=== PATIENT | female | born 1995 | race Caucasian/White ===

== ENCOUNTER 2018-01-06 09:50 | Inpatient (IN) | payer OTHER ==
[2018-01-06] MEDS ORDERED: ELECTROLYTE-148 SOLN 1,000 ML IV SCH ×2 (10:45→11:45)
[2018-01-06 11:33] VITALS: BMI 28.3
[2018-01-06] MEDS ORDERED: CITRIC ACID/SODIUM CITRATE 30 ML UNIT-DOSE CUP PO ONE (11:45)
--- NOTE | 2018-01-06 11:54 | HP ---
Past Medical History - Primary Care Physician PCP:: Eda Alex - Admission Chief Complaint: 22 yrs , previous c/section x2,39.2 weeks onset LP since 5..00 am . no leaking & bleeding. tachycrdia 180 bpm was noted at 10.00AM when arrived , after iv hydration fhr 160 bpm . uc are irregular History of Present Illness: pnc at [address] [place] [address] . wt gain 12 lb wt gain work Up : A Pos, Rpr nr, Hbsag neg, Rubella pos, Hiv neg, Sickle neg , Quantiferon neg, ,GBS pos, gc/ct neg .pngt not done, HB1a1c 4.7 last sono on 12/17/17 , modified, sequential , NT screen neg, , Vale 12.0, efw 5' 3", , bpp8/8,, ant placenta History Source: Patient, Medical Record Limitations to Obtaining History: Other (using interpretation services for deaf & Dumb, sign language through [email or web address] .) - Past Medical History FLOUR INSPECTOR: No: Migraine, Seizure Cardiovascular: No: HTN, Murmur Pulmonary: No: Asthma Gastrointestinal: Yes: Constipation Hepatobiliary: Yes: Cholelithiasis (surgery done) ...: 5 ...Para: 3 ...Term: 3 ...: 0 ...Spon : 0 ...Induced : 1 ...Multiple Gestation: 0 ...LMP: 04/06/17 ... Weeks Gestation by Dates: 39.2 ...EDC by Dates: 01/11/18 Additional OB History: G1 09/11/2010 6'10". G2 10/12/2011 primary c/s breech. G3 02/21/15 repeat c/s 6'3' , failed GUERO. G4 03/2016 Ind ab Heme/Onc: Yes: Anemia Infectious Disease: No: HIV, STD's, Tuberculosis - Past Surgical History Past Surgical History: Yes: (10/2011, 02/2015) Hx Myomectomy: No Hx Transabdominal Cerclage: No - Smoking History Smoking history: Never smoked Have you smoked in the past 12 months: No - Alcohol/Substance Use Hx Alcohol Use: No History of Substance Use: reports: None - Social History History of Recent Travel: No Home Medications - Allergies Allergies/Adverse Reactions: Allergies Allergy/AdvReac Type Severity Reaction Status Date / Time tree nut Allergy Verified 02/22/15 23:49 - Home Medications Home Medications: Ambulatory Orders Ferrous Gluconate 324 mg PO DAILY 02/22/15 Vit No.130/Iron/Folic [ Tablet] 1 each PO DAILY 02/22/15 Ibuprofen [Motrin -] 200 mg PO Q4H PRN #2 tablet 02/25/15 Physical Exam - Maternity Vital Signs: Vital Signs Temperature 98.2 F 01/06/18 11:10 Pulse Rate 61 01/06/18 11:10 Respiratory Rate 18 01/06/18 11:10 Blood Pressure 108/69 01/06/18 11:10 O2 Sat by Pulse Oximetry (%) Constitutional: Yes: Well Nourished, Mild Distress Eyes: Yes: WNL HENT: Yes: WNL, Normocephalic Neck: Yes: WNL Cardiovascular: Yes: WNL, Regular Rate and Rhythm Lungs: Clear to auscultation Breast(s): Yes: WNL. No: Mass - Abdominal Exam/OB Fundal Height: 38 Number of Fetuses: Single Presentation: Vertex Contractions: Yes Regularity: Irregular (2-4 min) Intensity: Mild/Mod Monitor Mode: External Heart Rate (range): 160 Heart Rate Location: [facility] Category: II Accelerations: Non-Uniform Decelerations: None - Vaginal Exam/OB Vaginal Bleediing: No Speculum Exam: No Dilatation (cm): 2 Effacement (%): 80 Amniotic Membrane Status: Intact Presentation: Vertex/Position Station: -3 - Physical Exam Musculoskeletal: Yes: WNL Extremities: Yes: WNL. No: Calf Tenderness Edema: Yes Edema: LLE: 1+, RLE: 1+ Integumentary: Yes: WNL Deep Tendon Reflex Grade: Normal +2 ...Motor Strength: WNL Psychiatric: Yes: WNL, Alert, Oriented - Labs Lab Results: Laboratory Tests 01/06/18 11:40 WBC 6.9 RBC 3.49 L Hgb 10.8 Hct 31.5 L MCV 90.3 MCH 30.8 MCHC 34.1 Plt Count 205 Neutrophils % 77.5 Lymphocytes % 16.7 D Monocytes % 5.0 Laboratory Tests 01/06/18 01/06/18 01/06/18 11:40 11:40 11:40 PT with INR 10.10 INR 0.89 PTT (Actin FS) 26.5 L D Sodium 139 Potassium 4.1 Chloride 108 H Carbon Dioxide 24 BUN 11 Creatinine 0.5 L Random Glucose 63 L Calcium 8.0 L RPR Titer Nonreactive Blood Type Antibody Screen 01/06/18 11:40 PT with INR INR PTT (Actin FS) Sodium Potassium Chloride Carbon Dioxide BUN Creatinine Random Glucose Calcium RPR Titer Blood Type A POSITIVE Antibody Screen Negative Hemorrhage Risk Assessment - Risk Factors Medium Risk Factors: Yes: Prior , uterine surgery,or multiple laparotomies Risk Score: 1 Risk Level: Medium Risk Problem List - Problems (1) with 39 completed weeks gestation Code(s): Z3A.39 - 39 WEEKS GESTATION OF (2) Previous section Code(s): Z98.891 - HISTORY OF UTERINE SCAR FROM PREVIOUS SURGERY (3) Labor established Code(s): GIZ2846 - (4) tachycardia during labor Code(s): BOO6805 - (5) tachycardia affecting management of mother, delivered Code(s): O76 - ABNLT IN HEART RATE AND RHYTHM COMP LABOR AND DELIVERY Assessment/Plan 22 yrs , 39.2 weeks, previous c/sectrion x2 , in labor, tachycardia Plan repeat c/setion
[2018-01-06] MEDS ORDERED: morphine SULFATE/Preservative Free 0.5 MG/ML (1cc Syringe) ONE (11:55)
[2018-01-06] MEDS ORDERED: ceFAZolin SODIUM 1 GM VIAL ONE ×2 (11:57→17:18)
[2018-01-06 12:09] LABS: BASO % 0.4 % (0-2.0); EOS % 0.4 % (0-4.5); HEMATOCRIT 31.5 % (32.4-45.2); HEMOGLOBIN 10.8 GM/dL (10.7-15.3); LYMPH % 16.7 % (8-40); MCH 30.8 pg (25.7-33.7); MCHC 34.1 g/dl (32.0-36.0); MEAN CELL VOLUME 90.3 fl (80-96); MEAN PLT VOLUME 9.1 fl (7.5-11.1); NEUT % 77.5 % (42.8-82.8); PLATELET COUNT 205 K/MM3 (134-434); RBC 3.49 M/mm3 (3.60-5.2); RDW 13.5 % (11.6-15.6); WHITE BLOOD COUNT 6.9 K/mm3 (4.0-10.0)
[2018-01-06 12:31] LABS: INR 0.89 (0.82-1.09); PROTHROMBIN TIME (PATIENT) 10.1 SEC (9.7-13.0)
[2018-01-06] MEDS ORDERED: OXYTOCIN 10 UNITS/ML VIAL ONE (12:33)
[2018-01-06 12:34] LABS: ACTIVATED PTT 26.5 SECONDS (26.9-34.4)
[2018-01-06] MEDS ORDERED: BUPIVACAINE 0.75% IN DEXTROSE/PF 2ML AMPULE NR ONE (12:38)
[2018-01-06 12:40] LABS: ANION GAP 7 (8-16); BLOOD UREA NITROGEN 11 mg/dL (7-18); CHLORIDE 108 mmol/L (98-107); CO2 24 mmol/L (21-32); CREATININE 0.5 mg/dL (0.55-1.02); GLUCOSE,RANDOM 63 mg/dL (74-106); POTASSIUM 4.1 mmol/L (3.5-5.1); SODIUM 139 mmol/L (136-145)
[2018-01-06] MEDS ORDERED: MIDAZOLAM HCL 2 MG/2 ML SINGLE DOSE VIAL ONE ×2 (13:05→13:12)
[2018-01-06 13:44] LABS: ARTERIAL BLD GAS O2 SATURATION 23.3 % (90-98.9); ARTERIAL BLOOD GAS BASE EXCESS -2.2 meq/l (-2-2); ARTERIAL BLOOD GAS PCO2 48.8 mmHg (35-45); ARTERIAL BLOOD GAS PO2 16.4 mmHg (80-100); ARTERIAL BLOOD GAS pH 7.31 (7.35-7.45)
[2018-01-06 13:49] LABS: VENOUS PC02 48.8 mmHg (38-52); VENOUS PH 7.31 (7.32-7.42); VENOUS PO2 16.4 mmHg (28-48)
[2018-01-06] MEDS ORDERED: IBUPROFEN 800 MG/8 ML IJ IVPB PRN ×2 (13:54→14:21)
[2018-01-06] MEDS ORDERED: ACETAMINOPHEN 325 MG TABLET (FP) PO PRN (13:54)
[2018-01-06] MEDS ORDERED: SIMETHICONE 80 MG TAB.CHEW (FP) PO PRN (13:54)
[2018-01-06] MEDS ORDERED: IBUPROFEN 600 MG TABLET (FP) PO PRN (13:54)
[2018-01-06] MEDS ORDERED: METHYLERGONOVINE MALEATE 0.2 MG/1 ML AMP IM PRN (13:54)
[2018-01-06] MEDS ORDERED: OXYTOCIN 20 UNITS in 0.9% NS 20 UNIT/1,000 ML INFUS.BAG IV SCH (14:00)
--- NOTE | 2018-01-06 14:11 | OP ---
Operative Note - Note: Operative Date: 01/06/18 Pre-Operative Diagnosis: 39.4 weeks, previous c/section x2, in labor Operation: repeat lftc/section Findings: 12.54 PM ,baby Girl, 9/9, ROT position , Wt 6'4". Ht 18.5" both tubes & ovaries normal.. Dr Pride Auto Air Conditioning Mechanic present in the room Surgeon: Eda Alex Network Design Architect: Eliseo Justin Anesthesiologist/DIGITAL PHOTOGRAPHER: Mik Fallon Anesthesia: Spinal Specimens Removed: cord blood segment for gas. cord blood. placenta Estimated Blood Loss (mls): 600 Drains, Volume Out (mls): 50 (duggan output, nat color ) Fluid Volume Replaced (mls): 1,500 (ancef 1 gmmprior to incision ) Operative Report Dictated: Yes
[2018-01-06] MEDS ORDERED: ONDANSETRON 4 MG/2 ML VIAL IVPUSH PRN (14:21)
--- NOTE | 2018-01-06 14:23 | PN ---
Delivery - Delivery Section: Repeat, Low Flap Transverse (39.4 weeks, previous c/s x2, n labor, tachycardia) Type of Anesthesia: Spinal EBL (cc): 600 (50 ml nat color urine ) Delivery, Single - Stages of Labor Date 1st Stage Initiatied: 01/06/18 Time 1st Stage Initiated: 05:00 Date of Delivery: 01/06/18 Time of Delivery: 12:54 Date Placenta Delivered: 01/06/18 Time Placenta Delivered: 12:56 Placenta: Yes: Manual Removal, Uterine Exploration - Condition of Infant Pharmacy Ancillary/Train Control Electronic Technician Present: Yes Name: Siam Pride Gender: Female Position: Right, OT Total Hours ROM (Hrs/Mins): 2 min - 1 Minute Total Score: 9 5 Minutes Total Score: 9 - Feeding Plan Initial Plan: Elected not to breastfeed exclusively throughout hospitalization Remarks - Remarks Remarks: 22 yrs , 39 .2 weeks , previous c/section x2 , in labor, tachycardia was noted gbs pos [facility] 2[facility] interpretor services used in OR Iv ancef 1 gm ivpb prior to incision was given intraop course uneventful
[2018-01-06] MEDS ORDERED: LACTATED RINGERS SOLUTION 1,000 ML IV SCH (14:30)
[2018-01-06] MEDS ORDERED: IBUPROFEN 800 MG/8 ML IJ IVPB ONE (14:43)
--- NOTE | 2018-01-06 14:59 | OP ---
DATE OF OPERATION: 01/06/2018 PREOPERATIVE DIAGNOSIS: A 39.4 weeks, previous section x2 in labor and tachycardia. OPERATION DONE: Repeat, low-flap, transverse section. SURGEON: Eda Alex MD VULCAN CREWMEMBER SURGEON: ELINA Lowery ANESTHESIOLOGIST: Mik Fallon MD ANESTHESIA: Spinal. FINDINGS: This is a 22-year-old, 5, para 3-0-1-3, had previous 2 C- sections. She was in labor and 2 cm dilated, 80% effaced. Contractions between 2-4 minutes and had a tachycardia of 180 and after IV hydration to 160. PROCEDURE: Abdomen was shaved, prepped. Canseco catheter was placed. She was taken to the operating room table. Spinal anesthesia was given. Patient was placed in supine position. A Pfannenstiel incision was made through previous scar, skin, and subcutaneous tissue. Anterior rectus sheath was incised transversely. Bleeding points were clamped and cauterized. Rectus muscles were from the rectus sheath. Parietal peritoneum was opened vertically. There was no definite, bladder peritoneum was identified, and the lower uterine segment was incised transversely. Amniotic fluid was clear. Baby was delivered from ROT position at 12:54 p.m. Baby's weight was 6 pounds 4 ounces. Height was 18-1/2 inches. Apgars were 9 and 9. Baby girl. Baby was handed over to the electrotyper apprentice, Dr. Pride, and cord was clamped. Cord segment was collected for the cord blood gas. Cord blood was collected. Placenta was removed completely with the membranes. The uterine incision was closed in 2 layers. First layer was a continuous locking with a Biosyn 0 suture. Second layer was a continuous, intermittent locking with a Biosyn 0 suture. Hemostasis was verified, and the bladder was nicely down. Both the tubes and ovaries were normal. Then, suction and irrigation was done. Sponge, instrument, needle count was correct. Then, the closure of the abdomen was done. Parietal peritoneum was closed with Vicryl 0 suture. Muscles were approximated together with Biosyn 0 suture. Interrupted sutures were taken. Hemostasis was verified underneath the rectus sheath. Then, the rectus sheath was closed with a Vicryl 0 continuous suture. Hemostasis was noted. Subcutaneous tissue was released from underneath scar from the skin. Irrigation was done, and interrupted sutures were taken in the subcutaneous tissue with Biosyn 0 suture. Then, the skin was approximated with a 3-0 Vicryl on a strait needle with the intradermal suture. Steri-Strips were applied and pressure dressing given. Patient tolerated the procedure well and she transferred to the recovery room in stable condition, and blood clots were removed before moving her to the recovery room. Estimated blood loss was 600 mL. Urine output was 50 mL nat-color intraoperatively, and she received 1 g of IV Ancef prior to the incision. Tracey [id number] MTDNettie
[2018-01-06] MEDS ORDERED: DEXTROSE 5%-WATER - 50 ML IVPB ONE (17:18)
[2018-01-06] MEDS: CEFAZOLIN 1 GM in DEXTROSE 5%-WATER - 50 ML IVPB SCH (17:39)
[2018-01-06] MEDS ORDERED: FERROUS SO4 325 MG TABLET (FP) PO SCH (22:00)
[2018-01-06] MEDS ORDERED: SENNOSIDES/DOCUSATE COMBO (SENNA PLUS) TABLET (UD) PO PRN (22:00)
[2018-01-07] MEDS ORDERED: DEXTROSE 5%-WATER - 50 ML IVPB ONE ×2 (00:42→09:04)
[2018-01-07] MEDS ORDERED: ceFAZolin SODIUM 1 GM VIAL ONE ×2 (00:42→09:04)
[2018-01-07] MEDS: CEFAZOLIN 1 GM in DEXTROSE 5%-WATER - 50 ML IVPB SCH ×2 (01:01→09:15)
[2018-01-07] MEDS ORDERED: oxyCODONE HCL 5 MG TABLET PO PRN ×2 (08:00)
[2018-01-07 08:52] LABS: BASO % 0.4 % (0-2.0); EOS % 0.7 % (0-4.5); HEMOGLOBIN 11.8 GM/dL (10.7-15.3); LYMPH % 6.1 % (8-40); MCH 31.3 pg (25.7-33.7); MCHC 34.5 g/dl (32.0-36.0); MEAN CELL VOLUME 90.6 fl (80-96); MEAN PLT VOLUME 8.7 fl (7.5-11.1); MONO % 4.7 % (3.8-10.2); NEUT % 88.1 % (42.8-82.8); PLATELET COUNT 198 K/MM3 (134-434); RBC 3.76 M/mm3 (3.60-5.2); RDW 13.4 % (11.6-15.6); WHITE BLOOD COUNT 10.9 K/mm3 (4.0-10.0)
--- NOTE | 2018-01-07 09:38 | PN ---
Post Progress Note - Subjective Subjective: Interpretor service used via computer no c/o pain , scale -2 . voided well after duggan was taken out tolerating po fluids wants to go home soon Post Day: 1 Type of Delivery: Repeat C/S Vital Signs: Vital Signs Temperature 98.4 F 01/07/18 05:04 Pulse Rate 71 01/07/18 05:04 Respiratory Rate 18 01/07/18 06:00 Blood Pressure 98/58 01/07/18 05:04 O2 Sat by Pulse Oximetry (%) 98 01/06/18 14:45 Breast Exam: Yes: Soft, Other (not BF ). No: Engorged Uterus: Yes: Fundus Firm, Fundus below umbilicus, Non-tender Incision: Yes: Dressing dry and intact. No: Redness, Oozing Abdomen/GI: Yes: Abdomen soft (bs active ), Abdominal Distention (mild , ), Passing flatus, Tolerating PO (fluids ). No: Tender Lochia: Yes: Rubra Lochia, amount: Moderate Extremities: Yes: Calves non-tender Perineum: Yes: Intact Activity: Other (oob ) - Labs Labs: CBC WBC 10.9 K/mm3 (4.0-10.0) H D 01/07/18 08:25 RBC 3.76 M/mm3 (3.60-5.2) 01/07/18 08:25 Hgb 11.8 GM/dL (10.7-15.3) 01/07/18 08:25 Hct 34.0 % (32.4-45.2) 01/07/18 08:25 MCV 90.6 fl (80-96) 01/07/18 08:25 MCH 31.3 pg (25.7-33.7) 01/07/18 08:25 MCHC 34.5 g/dl (32.0-36.0) 01/07/18 08:25 RDW 13.4 % (11.6-15.6) 01/07/18 08:25 Plt Count 198 K/MM3 (134-434) 01/07/18 08:25 MPV 8.7 fl (7.5-11.1) 01/07/18 08:25 Neutrophils % 88.1 % (42.8-82.8) H 01/07/18 08:25 Lymphocytes % 6.1 % (8-40) L D 01/07/18 08:25 Monocytes % 4.7 % (3.8-10.2) 01/07/18 08:25 Eosinophils % 0.7 % (0-4.5) 01/07/18 08:25 Basophils % 0.4 % (0-2.0) 01/07/18 08:25 Other Findings, Remarks: post op urine out put improved , 1200 ml i/o adequate RS cta Problem List - Problems (1) with 39 completed weeks gestation Code(s): Z3A.39 - 39 WEEKS GESTATION OF (2) Previous section Code(s): Z98.891 - HISTORY OF UTERINE SCAR FROM PREVIOUS SURGERY (3) Labor established Code(s): WTM0636 - (4) tachycardia affecting management of mother, delivered Code(s): O76 - ABNLT IN HEART RATE AND RHYTHM COMP LABOR AND DELIVERY (5) delivery delivered Code(s): O82 - ENCOUNTER FOR DELIVERY WITHOUT INDICATION Assessment/Plan stable Plan ct po care encourage po fluids, oob, ambulation, deep breathing
[2018-01-07] MEDS: PRENATAL VITAMINS W/ FOLIC ACID TABLET (FP) PO SCH (10:02)
[2018-01-07] MEDS: ENOXAPARIN NA (PORCINE) 40 MG/0.4 ML DISP.SYRIN SQ SCH ×2 (10:03→10:05)
--- NOTE | 2018-01-07 13:42 | PN ---
Progress Note (short form) - Note Progress Note: Anesthesia Post op/apin Pt seen and examined S:alert and awake Comfortable O: Vital Signs Vital Signs Temperature 97.7 F 01/07/18 10:00 Pulse Rate 72 01/07/18 10:00 Respiratory Rate 18 01/07/18 12:00 Blood Pressure 110/64 01/07/18 10:00 O2 Sat by Pulse Oximetry (%) 98 01/06/18 14:45 CBC, BMP 01/07/18 08:25 01/06/18 11:40 Current Active Problems delivery delivered (Acute) tachycardia affecting management of mother, delivered (Acute) Labor established (Acute) with 39 completed weeks gestation (Acute) Previous section (Acute) Doing well post op Continue current care Jorge Mai MD
[2018-01-07] MEDS ORDERED: BISACODYL 10 MG SUPP.RECT RC PRN (13:54)
[2018-01-07] MEDS: FERROUS SO4 325 MG TABLET (FP) PO SCH (21:29)
--- NOTE | 2018-01-08 02:12 | PN ---
Post Progress Note - Subjective Subjective: 22 yo Para 4 status post repeat , seen and evaluated. Doing well. Post Day: 2 Type of Delivery: Repeat C/S Vital Signs: Vital Signs Temperature 99 F 01/07/18 22:00 Pulse Rate 83 01/07/18 22:00 Respiratory Rate 18 01/07/18 22:00 Blood Pressure 105/69 01/07/18 22:00 O2 Sat by Pulse Oximetry (%) 98 01/06/18 14:45 Breast Exam: Yes: Soft Uterus: Yes: Fundus Firm Incision: Yes: Dressing dry and intact Abdomen/GI: Yes: Abdomen soft, Tolerating PO Lochia: Yes: Rubra Lochia, amount: Small Extremities: Yes: Calves non-tender Activity: Ambulating - Labs Labs: CBC WBC 10.9 K/mm3 (4.0-10.0) H D 01/07/18 08:25 RBC 3.76 M/mm3 (3.60-5.2) 01/07/18 08:25 Hgb 11.8 GM/dL (10.7-15.3) 01/07/18 08:25 Hct 34.0 % (32.4-45.2) 01/07/18 08:25 MCV 90.6 fl (80-96) 01/07/18 08:25 MCH 31.3 pg (25.7-33.7) 01/07/18 08:25 MCHC 34.5 g/dl (32.0-36.0) 01/07/18 08:25 RDW 13.4 % (11.6-15.6) 01/07/18 08:25 Plt Count 198 K/MM3 (134-434) 01/07/18 08:25 MPV 8.7 fl (7.5-11.1) 01/07/18 08:25 Neutrophils % 88.1 % (42.8-82.8) H 01/07/18 08:25 Lymphocytes % 6.1 % (8-40) L D 01/07/18 08:25 Monocytes % 4.7 % (3.8-10.2) 01/07/18 08:25 Eosinophils % 0.7 % (0-4.5) 01/07/18 08:25 Basophils % 0.4 % (0-2.0) 01/07/18 08:25 Assessment/Plan Status post repeat Stable Ambulation Analgesia as needed Continue routine Post op care
[2018-01-08] MEDS: FERROUS SO4 325 MG TABLET (FP) PO SCH ×2 (10:14→22:52)
[2018-01-08] MEDS: PRENATAL VITAMINS W/ FOLIC ACID TABLET (FP) PO SCH (10:15)
[2018-01-08] MEDS: ENOXAPARIN NA (PORCINE) 40 MG/0.4 ML DISP.SYRIN SQ SCH (10:15)
[2018-01-08 21:49] VITALS: TEMP 98.6
--- NOTE | 2018-01-09 08:01 | DS ---
Physical Exam-GROUP SUPERVISOR YARD Vital Signs: Vital Signs Temperature 98.6 F 01/08/18 21:48 Pulse Rate 84 01/08/18 21:48 Respiratory Rate 18 01/08/18 21:48 Blood Pressure 96/55 01/08/18 21:48 O2 Sat by Pulse Oximetry (%) 98 01/06/18 14:45 Constitutional: Yes: Well Nourished Eyes: Yes: Conjunctiva Clear HENT: Yes: Atraumatic Neck: Yes: Supple Cardiovascular: Yes: Regular Rate and Rhythm Respiratory: Yes: Regular Gastrointestinal: Yes: Normal Bowel Sounds External Genitalia: Yes: Normal Vaginal Exam: Yes: Normal Cervix: Yes: Normal Uterus: Yes: Firm Wound/Incision: Yes: Well Approximated Neurological: Yes: Alert, Oriented ...Motor Strength: WNL Psychiatric: Yes: Alert, Oriented Labs: CBC, BMP 01/07/18 08:25 01/06/18 11:40 Delivery - Delivery Section: Repeat, Low Flap Transverse (39.4 weeks, previous c/s x2, n labor, tachycardia) Type of Anesthesia: Spinal Episiotomy/Laceration: None EBL (cc): 600 Delivery, Single - Stages of Labor Date 1st Stage Initiatied: 01/06/18 Time 1st Stage Initiated: 05:00 Date of Delivery: 01/06/18 Time of Delivery: 12:54 Time Placenta Delivered: 12:56 Placenta: Yes: Manual Removal, Uterine Exploration - Condition of Cardiovascular Lab Director/Acreage Reporter Present: Yes Name: Sima Pride Gender: Female Weight: 6 lb 4 oz Position: Right, OT Total Hours ROM (Hrs/Mins): 3min - 1 Minute Total Score: 9 5 Minutes Total Score: 9 - [place] Feeding Plan Initial Plan: Elected not to breastfeed exclusively throughout hospitalization Discharge Summary Reason For Visit: Current Active Problems delivery delivered (Acute) tachycardia affecting management of mother, delivered (Acute) Labor established (Acute) with 39 completed weeks gestation (Acute) Previous section (Acute) Procedures: Principal: Hospital Course: Routine post op care Condition: Stable - Instructions Diet, Activity, Other Instructions: Post Instructions DIET: Continue good diet high in protein, calcium, and iron rich foods. Drink at least eight (8) glasses of water daily in addition to other fluids. ___ Regular diet MEDICATIONS: Continue vitamins and iron as previously directed. Motrin and Tylenol may be taken for minor discomfort. ACTIVITY: Mild to moderate exercise may be started in two (2) weeks. Take frequent rest periods. Resume normal activity after six (6) week check up. WOUND CARE OF OPERATIVE SITE: Continue use of perineal bottle until vaginal discharge stops. Keep area clean. Shower daily. Keep abdominal wound dry. Report any drainage or redness to physician. Tub baths, tampons and douches are not permitted for [address] Breast feeding & Bottle feeding BREAST CARE: (For those that are not ): If engorgement occurs: Wear tight fitting bra. Take Tylenol or Motrin for pain. Apply cold packs (ice in bags to each breast ) FAMILY PLANNING: There are many control alternatives to pursue and they should be discussed at your first office visit. You may resume sexual activity after your six (6) week check up. (Remember, breast feeding is not a contraceptive) NEXT PHYSICIAN APPOINTMENT: Be certain to call for two (2) week appointment, unless otherwise directed. on 01/18/[address] Alex at 11.30 AM , wound check Call Clinic or got to Emergency Dept if you have any of the following: Heavy vaginal bleeding Painful urination Leg pain Unusual odor noted to vaginal bleeding High fever Red streaking noted on breast Referrals: Eda Alex MD [Staff Physician] - Disposition: HOME - Home Medications Comprehensive Discharge Medication List: Ambulatory Orders Vit No.130/Iron/Folic [ Tablet] 1 each PO DAILY 02/22/15 Acetaminophen [Tylenol .Regular Strength -] 500 mg PO Q4H PRN #30 tablet Ferrous Sulfate [Feosol] 325 mg PO BID #60 tab 01/07/18 Ibuprofen [Motrin -] 600 mg PO Q4H PRN #30 tablet 01/07/18 Vitamins (Sjr) - 1 tab PO DAILY #30 tablet 01/07/18
[2018-01-09 08:20] LABS: BASO % 0.3 % (0-2.0); EOS % 2.5 % (0-4.5); HEMATOCRIT 29.4 % (32.4-45.2); HEMOGLOBIN 10.1 GM/dL (10.7-15.3); LYMPH % 14.1 % (8-40); MCH 31.2 pg (25.7-33.7); MCHC 34.5 g/dl (32.0-36.0); MEAN CELL VOLUME 90.2 fl (80-96); MEAN PLT VOLUME 8.1 fl (7.5-11.1); MONO % 6.3 % (3.8-10.2); NEUT % 76.8 % (42.8-82.8); PLATELET COUNT 194 K/MM3 (134-434); RBC 3.26 M/mm3 (3.60-5.2); RDW 13.5 % (11.6-15.6); WHITE BLOOD COUNT 7.5 K/mm3 (4.0-10.0)
[2018-01-09] MEDS: FERROUS SO4 325 MG TABLET (FP) PO SCH (09:19)
[2018-01-09] MEDS: PRENATAL VITAMINS W/ FOLIC ACID TABLET (FP) PO SCH (09:19)
[2018-01-09] MEDS: ENOXAPARIN NA (PORCINE) 40 MG/0.4 ML DISP.SYRIN SQ SCH (09:20)
[2018-01-09 10:29] VITALS: BP 102/59; PULSE 66
--- NOTE | 2018-01-13 11:18 | PATH ---
Surgical Pathology Report Patient Name: MARTÍNEZ SEQUEIRA Med. Rec. #: [id number] /Age/Gender: 1995 (Age: 22) / F Account: [id number] Location: [facility] OBS/PRODUCT ASSURANCE ENGINEER Taken: 01/07/2018 Received: 01/07/2018 Reported: 01/13/2018 Physicians: Eda Alex M.D. Specimen(s) Received PLACENTA Clinical History , 39.2 weeks previous in labor, tachycardia IAB x1, 09/2010 Final Diagnosis PLACENTA, SECTION: 291 g THIRD TRIMESTER PLACENTA WITH TRIVASCULAR UMBILICAL CORD AND UNREMARKABLE PLACENTAL MEMBRANES. Electronically Signed Thuy Ortiz M.D. Gross Description The specimen is received fresh labeled placenta and is a 291 gram, 15.5 x 13.0 x 2.7 cm. placenta with attached membranes and umbilical cord. The attached membranes are mcgee, translucent with focal opacities and insert marginally. The umbilical cord measures 8 cm. in length and averages 1 cm. in diameter. The cord inserts eccentrically, 3 cm. to the nearest margin. No true knots or strictures are identified. Cut surface of the umbilical cord reveals 3 vessels. The surface is bass-blue with minimal fibrin deposition and appropriate caliber vessels. The maternal surface is red-brown with focal defects. Sectioning reveals red-brown, spongy parenchyma. No lesions are identified. Industrial Gas Service Helper sections are submitted in three cassettes as follows: 1- membrane rolls and umbilical cord; 2-3- full thickness sections of placenta. 01/11/[facility]
== END 2018-01-09 12:15 | disposition home or self-care (01) | DRG 540 ==
LOC: JDEL 09:50 → JLDR 11:10 → J3W 15:33
PROVIDERS: ADMIT Obstetrics & Gynecology; ATTEND Obstetrics & Gynecology
PROC: 10D00Z1 Extraction of Products of Conception, Low, Open Approach (ICD-10-PCS; principal; 2018-01-06)
DX: O34.211 Maternal care for low transverse scar from previous cesarean delivery (principal); O76 Abnormality in fetal heart rate and rhythm complicating labor and delivery; Z3A.39 39 weeks gestation of pregnancy; Z37.0 Single live birth; H91.3 Deaf nonspeaking, not elsewhere classified
CPT/HCPCS: 36415; 36600; 80048; 82803; 85025; 85610; 85730; 86593; 86850; 86900; 86901; 88307-TC